=== PATIENT | female | born 1940 | race Caucasian/White ===

== ENCOUNTER 2020-04-12 17:41 | Inpatient (IN) | payer MEDICARE ==
[~2020-04-12] VITALS: Ht 157.5 cm; Wt 60.8 kg
--- NOTE | ~2020-04-12 | RHP ---
PATIENT: YONG WARNER MEDICAL RECORD: [id number] ACCOUNT: [id number] LOCATION:[id number] : 42 ADMISSION DATE: 04/12/20 REHABILITATION HISTORY AND PHYSICAL EXAMINATION POST ADMISSION PHYSICIAN EXAMINATION POST ADMISSION PHYSICAL EXAMINATION AND HISTORY AND PHYSICAL ADMITTING DIAGNOSIS: Cerebrovascular accident. HISTORY OF PRESENT ILLNESS: The patient is a 79-year-old female patient, who is admitted to [facility] with a stroke, with a large infarct involving the left middle cerebral artery territory. She was in the ED after a fall at home. She was 5 days postop from a valve replacement done at [facility] in [place]. The patient had Plavix postop. On exam, she was hypoxic with O2 sat of 89%. She had some dysphagia and word salad. The patient was responding to pain in all 4 extremities. She is pleasantly confused, but cooperative. CT showed what appeared to be a left brain CVA after a fall 5 days after her valve replacement. Neurology, cardiology and cardiovascular surgery were consulted. The patient had x-rays of her hip, which showed a displaced right femoral neck fracture. Ortho was consulted on 04/04/2020, she went to the OR for right hip endoprosthesis. Previously, she was living with her spouse in a 2-story house. She was independent with ADLs and mobility prior to this. Currently, she is much more alert and talking, but has cognitive deficits that she has memory processing and she requires moderate cues for completion of ADLs and mobility. She is also max assist for transfers, balance, and gait. She wants to be able to return home at her prior level of functioning. COMORBIDITIES: Include weakness, acute CVA, right femoral neck fracture. She has got speech and language deficits, aortic stenosis, status post aortic valve replacement, COPD, hyperkalemia and hypertension. PAST MEDICAL HISTORY: Significant for hypertension, aortic stenosis, COPD, gastroesophageal reflux disease, hyperlipidemia, osteoporosis or tobacco use. PAST SURGICAL HISTORY: Includes right knee arthroplasty. She has had a rotator cuff repair. She has had spinal surgery and cataract surgery. ALLERGIES: CODEINE, HYDROCODONE, YELLOW DYE AND CELEBREX. CURRENT MEDICATIONS: Include Atrovent updrafts q.i.d. p.r.n. She is on Zoloft 100 mg daily, enoxaparin 40 mg daily, clopidogrel 75 mg daily, atorvastatin 40 mg daily, Synthroid 50 mcg daily, Singulair 10 mg at bedtime, Neurontin 600 mg b.i.d., Ventolin updrafts as needed and tramadol 100 mg q.6 hours p.r.n. HABITS: No alcohol or tobacco use. FAMILY HISTORY: Noncontributory. SOCIAL HISTORY: The patient hopes to return back home and get back to her prior level of functioning. REVIEW OF SYSTEMS: GENERAL: Does complain of weakness and fatigue. HEENT: Denies cold, cough, or congestion. HISTORY AND PHYSICAL [id number] YONG WARNER CARDIOVASCULAR: Denies any chest pain. PHYSICAL EXAMINATION: VITAL SIGNS: Stable, afebrile. GENERAL: Elderly female, in no acute distress upon exam. HEENT: Normocephalic and atraumatic. Mucosa moist. NECK: Supple. No lymphadenopathy. LUNGS: Clear in upper [place]. No wheezing, rhonchi or rales. HEART: Regular rate and rhythm. No murmurs, rubs, or gallops. ABDOMEN: Soft, benign, and nondistended. EXTREMITIES: Consistent with hip replacement. Postop swelling appears normal. NEUROLOGIC: She is mildly confused, but she is able to answer most questions. She does have proximal muscle strength and weakness, especially on her side that she had her hip done. LABORATORY DATA: White count 6.2, H&H 10.6 and 34.0 and platelet count is 246. Sodium 141, potassium 3.7, BUN and creatinine of 16 and 0.6 and blood sugar is noted to be 75. ASSESSMENT: This is a 79-year-old female patient admitted to rehab with a working diagnosis of status post cerebrovascular accident and also status post hip replacement. The patient has potential to make improvement. We instituted the following multidisciplinary therapies including, but not limited to physical, occupational, respiratory, speech, nutritional services, prosthetics and orthotics. Given her complex medical condition and risk of further medical complications, rehabilitation services cannot be provided at a low level of care such as skilled nurse facility. PLAN: 1. Admit to [facility] for intensive inpatient therapy to include the following disciplines; A. Physical therapy to improve gait, all transfer skills and bed mobility to a modified independent level. B. Occupational therapy to improve activities of daily living. C. Case management to help with discharge planning and placement options. D. Nutrition to assist with nutritional needs. E. Rehabilitation nursing to assist in monitoring the patient's underlying medical and to assist with any type of bowel or bladder management. 2. The patient's current medication and medical care will be continued. 3. The patient will be placed on standard fall precautions. 4. The patient's estimated length of stay is approximately 7-10 days. 5. We will discuss the patient during care team staff meeting this week. We will watch for any further signs of CVA. We will work on getting her back up on her hip again and will follow up as needed. TRANSINT:[id number] Voice Confirmation ID: [id number] DOCUMENT ID: [id number] JON notes whether there has been none or any medical/functional change since admission: - No change since preadmission screen. JON attests patient continues to be appropriate for IRF: - Continues to be appropriate. HISTORY AND PHYSICAL [id number] YONG WARNER,KALLI VILLALPANDO MD CC: [id number] DICTATION DATE: 04/13/20 1326 MACHINE SILK SCREEN PRINTER: 04/13/20 193 ADM IN [facility] [address] [place] [address]
[2020-04-12 19:38] VITALS: BP 120/53
--- NOTE | 2020-04-12 20:00 | NUR ---
PATIENT RECEIVED SITTING UP IN BED. ASSESSMENT BY CARCASS SPLITTER NURSE. VITAL SIGNS DONE. BED LOW. ALARM ON. CALL LIGHT WITHIN REACH. WILL CONTINUE TO MONITOR.
[2020-04-12 22:26] VITALS: BP 120/53; BMI 24.5
--- NOTE | 2020-04-13 05:00 | NUR ---
PATIENT TOILETED. VOID ONLY. PATIENT MINIMAL ASSIST INTO & OUT OF BED. B3D LOW. CALL LIGHT WITHIN REACH. WILL CONTINUE TO MONITOR.
[2020-04-13 07:05] LABS: BASOPHILS 0.3 % (0-2); EOSINOPHILS 1.5 % (0-7); HEMOGLOBIN 10.6 g/dL (12-16); IMMATURE GRANULOCYTES 0.3 % (0-5); LYMPHOCYTES 9.4 % (15-50); MCH 28.6 pg (26.0-34.0); MCHC 31.2 g/dL (31.0-37.0); MCV 91.6 fL (80.0-100.0); MEAN PLATELET VOLUME 8.9 fL (7.4-10.4); MONOCYTES 7.3 % (2-11); NEUTROPHILS 81.2 % (40-80); PLATELET COUNT 246 10x3/uL (130-400); RBC 3.71 10x6/uL (4.00-5.40); RDW 13.8 % (11.5-14.5); WBC 6.2 10x3/uL (4.8-10.8)
[2020-04-13 07:31] LABS: CALC OSMOLALITY 280 mosm/kg (275-300); CALCIUM 8.1 mg/dL (8.5-10.1); CARBON DIOXIDE 31.7 mmol/L (21.0-32.0); CHLORIDE - SERUM 104 mmol/L (98-107); CREATININE - SERUM 0.6 mg/dL (0.6-1.3); GLUCOSE 75 mg/dL (74-106); POTASSIUM - SERUM 3.7 mmol/L (3.5-5.1); SODIUM 141 mmol/L (136-145); UREA NITROGEN 16 mg/dL (7-18); eGFR NON AFRICAN AMERICAN > 90 mL/min (90-120)
[2020-04-13 08:00] VITALS: BP 149/74
--- NOTE | 2020-04-13 08:00 | NUR ---
SHIFT ASSMT COMPLETED.CL IN REACH.
[2020-04-13 10:46] VITALS: Ht 157.5 cm; Wt 60.8 kg
--- NOTE | 2020-04-13 19:30 | NUR ---
PATIENT RECEIVED SITTING UP IN WHEELCHAIR. ASSESSMENT & VITAL SIGNS DONE. CALL LIGHT WITHIN REACH. WILL CONTINUE TO MONITOR.
[2020-04-13 21:12] VITALS: BP 131/68
--- NOTE | 2020-04-13 23:00 | NUR ---
PATIENT DRESSING REMOVED TO RIGHT HIP. NO REDNESS, STERI STRIPS IN PLACE. NEW DRESSING APPLIED. PATIENT TOLERATED IT WELL. BED LOW. ALALRM ON. CALL LIGHT WITHIN REACH. WILL CONTINUE TO MONITOR.
[2020-04-14] MEDS ORDERED: SINGULAIR10 MG PO (00:13)
[2020-04-14] MEDS ORDERED: ZOLOFT100 MG PO (00:14)
[2020-04-14] MEDS ORDERED: ULTRAM50 MG PO (00:15)
[2020-04-14] MEDS ORDERED: LIPITOR40 MG PO (00:17)
[2020-04-14] MEDS ORDERED: VENTOLIN HFA [SP8 GM INH (00:17)
[2020-04-14] MEDS ORDERED: PLAVIX75 MG PO (00:18)
[2020-04-14] MEDS ORDERED: LOVENOX40 MG/0.4 (00:19)
[2020-04-14] MEDS ORDERED: NEURONTIN 300300 MG PO (00:21)
[2020-04-14] MEDS ORDERED: SYNTHROID50 MCG PO (00:21)
[2020-04-14] MEDS ORDERED: INCRUSE ELLI62.5 MCG INH (00:21)
--- NOTE | 2020-04-14 01:26 | NUR ---
I have reviewed this patient and I concur with the Shift Assessment completed by the Licensed Practical Nurse today this shift.
--- NOTE | 2020-04-14 08:00 | NUR ---
SHIFT ASST COMPLETED.
[2020-04-14 08:26] VITALS: BP 124/64
--- NOTE | 2020-04-14 12:00 | NUR ---
VISITING.SITTING UP EATING LUNCH.
[2020-04-14 20:00] VITALS: BP 134/64
--- NOTE | 2020-04-14 20:00 | NUR ---
PATIENT RECEIVED SITTING UP IN WHEELCHAIR. ASSESSMENT & VITAL SIGNS DONE. PATIENT TOILETED. VOID ONLY. DRESSING TO LEFT HIP C/D/I. PATIENT RETURNED TO BED. CLOTHING TAKEN OFF. GOWN ON. BED LOW. CALL LIGHT WITHIN REACH. ALARM ON. WILL CONTINUE TO MONITOR.
--- NOTE | 2020-04-15 01:54 | NUR ---
PATIENT EYES CLOSED. RESPIRATIONS 18 & EVEN. BED LOW. ALARM ON. CALL LIGHT WITHIN REACH. WILL CONTINUE TO MONITOR.
--- NOTE | 2020-04-15 04:32 | NUR ---
I have reviewed this patient and I concur with the Shift Assessment completed by the Licensed Practical Nurse today this shift.
[2020-04-15 07:08] LABS: BASOPHILS 0.7 % (0-2); EOSINOPHILS 1.3 % (0-7); HEMATOCRIT 30.9 % (36.0-48.0); HEMOGLOBIN 9.7 g/dL (12-16); IMMATURE GRANULOCYTES 0.2 % (0-5); MCH 28.3 pg (26.0-34.0); MCHC 31.4 g/dL (31.0-37.0); MCV 90.1 fL (80.0-100.0); MEAN PLATELET VOLUME 9.1 fL (7.4-10.4); MONOCYTES 8.5 % (2-11); NEUTROPHILS 74.3 % (40-80); PLATELET COUNT 256 10x3/uL (130-400); RBC 3.43 10x6/uL (4.00-5.40); RDW 13.6 % (11.5-14.5)
[2020-04-15 07:13] LABS: WBC 4.6 10x3/uL (4.8-10.8)
[2020-04-15 07:22] LABS: CALC OSMOLALITY 283 mosm/kg (275-300); CALCIUM 8.5 mg/dL (8.5-10.1); CARBON DIOXIDE 32.1 mmol/L (21.0-32.0); CHLORIDE - SERUM 106 mmol/L (98-107); CREATININE - SERUM 0.6 mg/dL (0.6-1.3); GLUCOSE 86 mg/dL (74-106); POTASSIUM - SERUM 3.4 mmol/L (3.5-5.1); SODIUM 143 mmol/L (136-145); UREA NITROGEN 13 mg/dL (7-18); eGFR NON AFRICAN AMERICAN > 90 mL/min (90-120)
[2020-04-15 08:00] VITALS: BP 129/64
--- NOTE | 2020-04-15 20:07 | NUR ---
PT IN BED ASLEEP, AROUSES EASILY TO VOICE, NO NEEDS NOTED, RESPIRATIONS EVEN AND UNLABORED, FALL PRECAUTIONS IN PLACE, FLUIDS/CALL LIGHT WITHIN REACH
[2020-04-15 20:11] VITALS: BP 123/58
--- NOTE | 2020-04-16 00:44 | NUR ---
PT IN BED ASLEEP, AROUSES EASILY TO VOICE, NO NEEDS NOTED, RESPIRATIONS EVEN AND UNLABORED, FALL PRECAUTIONS IN PLACE, FLUIDS/CALL LIGHT WITHIN REACH
[2020-04-16 07:30] VITALS: BP 128/63
--- NOTE | 2020-04-16 07:30 | NUR ---
RECEIVED RESTING QUIETLY IN BED.DENIES PAIN AND NEEDS.DRESSING INTACT TO RIGHT HIP.WILL CONTINUE WITH CURRENT PLAN OF CARE.CL IN EASY REACH,BED IN LOW POSITION.
--- NOTE | 2020-04-16 14:22 | NUR ---
Nutrition Follow-up: Diet: Regular PO intake: ~63% average x last 6 meals. States that her appetite has been "not much." She is interested in getting Boost on meal trays. Last BM: 04/14/20. Wt: 134# (04/13/20) Meds reviewed. Labs noted: K 3.4(L) Encouraged patient to write in special meal request on menu. Will add Boost BID. Recommend continnue current diet. RD following.
--- NOTE | 2020-04-16 19:24 | NUR ---
PT ASLEEP, AROUSES EASILY TO VOICE, NO IMMEDIATE NEEDS NOTED, FALL PRECAUTIONS IN PLACE, RESPIRATIONS EVEN AND UNLABORED, FLUIDS/CALL LIGHT WITHIN REACH
[2020-04-16 22:09] VITALS: BP 153/75
--- NOTE | 2020-04-17 00:01 | NUR ---
PT ASLEEP, AROUSES EASILY TO VOICE, NO IMMEDIATE NEEDS NOTED, FALL PRECAUTIONS IN PLACE, RESPIRATIONS EVEN AND UNLABORED, FLUIDS/CALL LIGHT WITHIN REACH
[2020-04-17 07:52] LABS: CALC OSMOLALITY 276 mosm/kg (275-300); CALCIUM 8.4 mg/dL (8.5-10.1); CARBON DIOXIDE 29.5 mmol/L (21.0-32.0); CHLORIDE - SERUM 102 mmol/L (98-107); CREATININE - SERUM 0.6 mg/dL (0.6-1.3); GLUCOSE 77 mg/dL (74-106); POTASSIUM - SERUM 3.6 mmol/L (3.5-5.1); SODIUM 139 mmol/L (136-145); UREA NITROGEN 13 mg/dL (7-18); eGFR NON AFRICAN AMERICAN > 90 mL/min (90-120)
[2020-04-17 07:57] LABS: EOSINOPHILS 1.9 % (0-7); HEMATOCRIT 33.7 % (36.0-48.0); HEMOGLOBIN 10.6 g/dL (12-16); IMMATURE GRANULOCYTES 0.2 % (0-5); LYMPHOCYTES 15.2 % (15-50); MCH 28.7 pg (26.0-34.0); MCHC 31.5 g/dL (31.0-37.0); MCV 91.3 fL (80.0-100.0); MEAN PLATELET VOLUME 9.1 fL (7.4-10.4); MONOCYTES 8.8 % (2-11); NEUTROPHILS 72.9 % (40-80); PLATELET COUNT 291 10x3/uL (130-400); RBC 3.69 10x6/uL (4.00-5.40); RDW 13.7 % (11.5-14.5); WBC 4.2 10x3/uL (4.8-10.8)
[2020-04-17 08:15] VITALS: BP 133/66
--- NOTE | 2020-04-17 09:44 | NUR ---
PARTICIPATING IN THERAPY. NO C/O PAIN.
--- NOTE | 2020-04-17 13:42 | NUR ---
NO CHANGE IN ASSESSMENT. FAMILY HERE TODAY.
--- NOTE | 2020-04-17 20:49 | NUR ---
PT IN BED NO IMMEDIATE NEEDS NOTED, FALL PRECAUTIONS IN PLACE, RESPIRATIONS EASY AND EVEN, BED IN LOWEST POSITION, FLUIDS/CALL LIGHT WITHIN REACH
[2020-04-17 20:53] VITALS: BP 140/63
[2020-04-18 08:00] VITALS: BP 109/55
--- NOTE | 2020-04-18 16:14 | NUR ---
HAS BEEN UP IN WC MOST OF DAY. RT HIP STILL SWOLLEN IS RLE. IS HAVING LESS WORD SALAD IN HER SPEECH. FOLLOWS COMMANDS BETTER BUT NEEDS ENCOURAGEMENT TO STAY UP IN WC FOR A WHILE. SHE WANTS TO LAY BACK DOWN.
[2020-04-18 16:34] VITALS: BP 109/55
--- NOTE | 2020-04-18 16:35 | NUR ---
CLINICAL UPDATES FAXED TO [facility]ARPE. # [phone], FAX # , WITH CONFORMATION OF FAX RECIEVED
[2020-04-18 19:32] VITALS: BP 131/47
[2020-04-19 07:41] LABS: BASOPHILS 0.3 % (0-2); EOSINOPHILS 2.1 % (0-7); HEMATOCRIT 31.5 % (36.0-48.0); HEMOGLOBIN 9.8 g/dL (12-16); IMMATURE GRANULOCYTES 0.3 % (0-5); LYMPHOCYTES 14.3 % (15-50); MCH 28.4 pg (26.0-34.0); MCHC 31.1 g/dL (31.0-37.0); MCV 91.3 fL (80.0-100.0); MEAN PLATELET VOLUME 9.1 fL (7.4-10.4); MONOCYTES 8.5 % (2-11); NEUTROPHILS 74.5 % (40-80); PLATELET COUNT 257 10x3/uL (130-400); RBC 3.45 10x6/uL (4.00-5.40); RDW 13.9 % (11.5-14.5); WBC 3.8 10x3/uL (4.8-10.8)
[2020-04-19 07:53] LABS: CALC OSMOLALITY 284 mosm/kg (275-300); CALCIUM 8.6 mg/dL (8.5-10.1); CARBON DIOXIDE 33.2 mmol/L (21.0-32.0); CHLORIDE - SERUM 108 mmol/L (98-107); CREATININE - SERUM 0.5 mg/dL (0.6-1.3); GLUCOSE 86 mg/dL (74-106); POTASSIUM - SERUM 3.8 mmol/L (3.5-5.1); SODIUM 144 mmol/L (136-145); UREA NITROGEN 10 mg/dL (7-18); eGFR NON AFRICAN AMERICAN > 90 mL/min (90-120)
[2020-04-19 07:54] VITALS: BP 132/72
--- NOTE | 2020-04-19 14:05 | NUR ---
SITTING UP IN WC IN ROOM. NO LONGER HAS WORD SALAD BUT STILL HAS TROUBLE WITH MAKING COMPLETE SENTENCES. GENERALIZED WEAKNESS NOTED. USES WC FOR MOTION ASST. DENIES PAIN. DOES MOST ADL'S FOR SELF. TRIED PUTTING ON TWO PAIR OF PAINTIES TODAY AND COULD NOT FIGURE OUT WHY SHE "NEEDED TWO PAIR". SHE ALSO PUT HER DIRTY CLOTHES WITH HER CLEAN CLOTHES TO WEAR AGAIN. IS EASY TO REDIRECT BY STAFF. INCISION TO RT HIP HAS NO S/S INFECTION. EDEMA NOTED TO RLE.
[2020-04-19 20:00] VITALS: BP 130/77
--- NOTE | 2020-04-19 20:00 | NUR ---
PATIENT RECEIVED SITTING UP IN BED. ASSESSMENT & VITAL SIGNS DONE. RIGHT HIP INCISION STERI STRIPS DRY & INTACT. NO C/O PAIN OR DISTRESS. BED LOW. ALARM ON. CALL LIGHT WITHIN REACH. WILL CONTINUE TO MONITOR.
--- NOTE | 2020-04-19 21:10 | NUR ---
PATIENT USED CALL LIGHT FOR ASSIST. PATIENT MINIMAL ASSIST INTO & OUT OF BED & WHEELCHAIR. VOID ONLY. RETURNED TO LOW BED. ALARM ON. CALLIGHT WITHIN REACH. WILL CONTINUE TO MONITOR.
--- NOTE | 2020-04-20 01:33 | NUR ---
PATIENT EYES CLOSED. RESPIRATIONS 18 & EVEN. BED LOW. CALL LIGHT WITHIN REACH. ALARM ON. WILL CONTINUE TO MONITOR.
--- NOTE | 2020-04-20 02:04 | NUR ---
I have reviewed this patient and I concur with the Shift Assessment completed by the Licensed Practical Nurse today this shift.
[2020-04-20 08:00] VITALS: BP 117/68
--- NOTE | 2020-04-20 11:50 | NUR ---
SITTING UP IN WC IN ROOM. VISITING. CALL LIGHT IN REACH
--- NOTE | 2020-04-20 17:46 | NUR ---
SITTING UP IN WC IN ROOM EATING SUPPER. DENIES NEEDS. CALL LIGHT IN REACH
--- NOTE | 2020-04-20 17:57 | NUR ---
SITTING UP IN WC IN ROOM TALKING ON PHONE. CALL LIGHT IN REACH
--- NOTE | 2020-04-20 19:40 | NUR ---
PATIENT RECEIVED SITTING UP IN WHEELCHAIR AT BESIDE. ALARM ON. ASSESSMENT & VITAL SIGNS DONE. PATIENT TOILETED, MINIMAL ASSIST. VOID ONLY. CALL LIGHT WITHIN REACH. WILL CONTINUE TO MONITOR.
[2020-04-20 20:15] VITALS: BP 127/64
--- NOTE | 2020-04-21 02:08 | NUR ---
I have reviewed this patient and I concur with the Shift Assessment completed by the Licensed Practical Nurse today this shift.
--- NOTE | 2020-04-21 02:19 | NUR ---
PATIENT EYES CLOSED. RESPIRATIONS 18 & EVEN. ALARM ON. BED LOW. CALL LIGHT WITHIN REACH. WILL CONTINUE TO MONITOR.
[2020-04-21 08:00] VITALS: BP 128/64
--- NOTE | 2020-04-21 17:04 | NUR ---
RESTING QUIETLY IN BED. VISITED TODAY. STILL STATES HER RLE IS STIFF. CALL ARLET REACH
[2020-04-21 19:46] VITALS: BP 107/61
--- NOTE | 2020-04-21 20:00 | NUR ---
PATIENT RECEIVED SITTING UP IN BED WATCHING TV. ASSESSMENT & VITAL SIGNS DONE. PATIENT TOILETED. VOID ONLY. RIGHT LEG PLUS 4 EDEMA. RIGHT HIP STERI STRIPS IN PLACE. PATIENT RETURNED TO LOW BED. ASSIST WITH LEGS INTO BED. ALARM ON. PHONE & CALL LIGHT WITHIN REACH. WILL CONTINUE TO MONITOR.
--- NOTE | 2020-04-22 03:25 | NUR ---
I have reviewed this patient and I concur with the Shift Assessment completed by the Licensed Practical Nurse today this shift.
[2020-04-22 07:05] LABS: BASOPHILS 0.3 % (0-2); EOSINOPHILS 3.4 % (0-7); HEMATOCRIT 29.7 % (36.0-48.0); HEMOGLOBIN 9.1 g/dL (12-16); IMMATURE GRANULOCYTES 0.3 % (0-5); LYMPHOCYTES 22.8 % (15-50); MCH 28.3 pg (26.0-34.0); MCHC 30.6 g/dL (31.0-37.0); MCV 92.5 fL (80.0-100.0); MEAN PLATELET VOLUME 8.6 fL (7.4-10.4); MONOCYTES 12.2 % (2-11); PLATELET COUNT 213 10x3/uL (130-400); RBC 3.21 10x6/uL (4.00-5.40); RDW 13.8 % (11.5-14.5); WBC 3.2 10x3/uL (4.8-10.8)
[2020-04-22 07:21] LABS: CALC OSMOLALITY 276 mosm/kg (275-300); CALCIUM 8.7 mg/dL (8.5-10.1); CARBON DIOXIDE 33.9 mmol/L (21.0-32.0); CHLORIDE - SERUM 107 mmol/L (98-107); CREATININE - SERUM 0.7 mg/dL (0.6-1.3); GLUCOSE 86 mg/dL (74-106); POTASSIUM - SERUM 3.9 mmol/L (3.5-5.1); SODIUM 140 mmol/L (136-145); UREA NITROGEN 10 mg/dL (7-18); eGFR NON AFRICAN AMERICAN 86 mL/min (90-120)
[2020-04-22 08:06] VITALS: BP 106/59
--- NOTE | 2020-04-22 08:19 | NUR ---
ALERT. SITTING IN WC. NO DISTRESS NOTED. CL IN REACH.
--- NOTE | 2020-04-22 12:34 | NUR ---
EATING LUNCH. NO C/O PAIN. CL IN REACH. REPOSITIONED UP IN BED.
--- NOTE | 2020-04-22 17:38 | NUR ---
NO CHANGE IN ASSESSMENT. SITTING IN WC EATING DINNER. NO DISTRESS NOTED. CL IN REACH.
[2020-04-22 19:40] VITALS: BP 126/62
--- NOTE | 2020-04-22 19:40 | NUR ---
ASSESSMENT PER FLOW SHEET, VS OBTAINED, PT REPORTS FLATUS, BM TODAY, AND VOIDING WITH NO DIFFICULTY, PT C/O RIGHT LEG PAIN, REQUESTS PAIN MED WHEN DUE, INFORMED PT PAIN MED WAS DUE AT 2100, PT DENIES FURTHER NEEDS AT THIS TIME, FALL PRECAUTIONS IN PLACE
--- NOTE | 2020-04-22 21:23 | NUR ---
PT RESTING WITH EYES CLOSED, AROUSES TO SOFT VERBAL STIMULATION, ADM 2100 MEDS, INFORMED PT THAT I HAVE TO CALL THE DOCTOR TO GET HER PAIN MED RENEWED, PT VERBALIZES UNDERSTANDING, FRESH H20 SERVED, PT DENIES FURTHER NEEDS AT THIS TIME
--- NOTE | 2020-04-22 22:08 | NUR ---
PT RESTING WITH EYES CLOSED, AROUSES TO SOFT VERBAL STIMULATION, ADM TRAMADOL PER MD ORDERS, SEE EMAR, FALL PRECAUTIONS IN PLACE
--- NOTE | 2020-04-23 | NUR ---
PT RESTING WITH EYES CLOSED, RESP QUIET, NO DISTRESS NOTED, LEFT UNDISTURBED AT THIS TIME, FALL PRECAUTIONS IN PLACE
--- NOTE | 2020-04-23 02:40 | NUR ---
PT RESTING WITH EYES CLOSED, RESP QUIET, NO DISTRESS NOTED, LEFT UNDISTURBED AT THIS TIME, FALL PRECAUTIONS IN PLACE
--- NOTE | 2020-04-23 04:30 | NUR ---
PT RESTING WITH EYES CLOSED, RESP QUIET, NO DISTRESS NOTED, LEFT UNDISTURBED AT THIS TIME, FALL PRECAUTIONS IN PLACE
--- NOTE | 2020-04-23 05:54 | NUR ---
PT RESTING WITH EYES CLOSED, AROUSES TO SOFT VERBAL STIMULATION, ADM 0600 MEDS PER MD ORDERS, SEE EMAR, WITH FRESH H20, PT UP TO BR WITH ASSISTANCE VIA WC, PT INCONT, PT HAD SMALL BM AND VOIDED WITH NO DIFFICULTY, PT CLEANED UP WITH WET WIPES, COTHES CHANGED, PT BACK TO BED, DENIES FURTHER NEEDS OR PAIN, FALL PRECAUTIONS IN PLACE
--- NOTE | 2020-04-23 07:30 | NUR ---
RECEIVED RESTING QUIETLY IN BED.AROUSES EASILY.ORIENTED TO SELF AND HOSPITAL.DENIES NEEDS AT PRESENT TIME.WILL CONTINUE WITH CURRENT PLAN OF CARE.CL IN EASY REACH,BED IN LOW POSITION.BED ALARM ON AND WORKING.
[2020-04-23 08:00] VITALS: BP 119/63
--- NOTE | 2020-04-23 13:22 | NUR ---
NUTRITION FOLLOW UP: COMMENT: Patient with PT during visit this am. Patient has been experiencing an okay PO intake. Patient continue to receive Boost with lunch and dinner. Patients last BM was 04/22 DIET: Regular Diet SUPPLEMENT: Boost with lunch and Dinner PO INTAKE: 58% avg for last 8 meals WEIGHT: 134 lbs on 04/13 BM: x 1 on 04/22 SIG MEDS: Miralax, Lovenox, Lipitor, Synthroid SIG LABS: GFR-86(L), CO2-33.9(H) RD to continue to monitor and follow patient DHS
[2020-04-23 19:26] VITALS: BP 115/47
--- NOTE | 2020-04-23 19:39 | NUR ---
RECIEVED BEDSIDE SHIFT REPORT. ALERT AND ORIENTED TO PERSON AND PLACE ONLY. THINKS IT 1950. ASSISTED TO TOILET IN W/C. REQUIRES MIN ASSIST. STERI STRIPS TO RT HIP. CDI. BED ALARM ON. DENIES ANY OTHER NEEDS.
--- NOTE | 2020-04-24 04:32 | NUR ---
RESTING IN BED WITH EYES CLOSED. CALL LIGHT AND PERSONAL EFFECTS IN REACH. NO OBVIOUS S/S OF DISTRESS OBSERVED.
[2020-04-24 08:27] VITALS: BP 131/75
[2020-04-24 09:13] LABS: CALC OSMOLALITY 277 mosm/kg (275-300); CARBON DIOXIDE 33.1 mmol/L (21.0-32.0); CHLORIDE - SERUM 104 mmol/L (98-107); CREATININE - SERUM 0.7 mg/dL (0.6-1.3); GLUCOSE 103 mg/dL (74-106); POTASSIUM - SERUM 3.7 mmol/L (3.5-5.1); SODIUM 140 mmol/L (136-145); UREA NITROGEN 10 mg/dL (7-18); eGFR NON AFRICAN AMERICAN 86 mL/min (90-120)
[2020-04-24 09:28] LABS: BASOPHILS 0.3 % (0-2); EOSINOPHILS 2.9 % (0-7); HEMATOCRIT 35.6 % (36.0-48.0); LYMPHOCYTES 19.1 % (15-50); MCH 28.6 pg (26.0-34.0); MCHC 30.9 g/dL (31.0-37.0); MCV 92.5 fL (80.0-100.0); MEAN PLATELET VOLUME 9.4 fL (7.4-10.4); MONOCYTES 5.8 % (2-11); NEUTROPHILS 71.9 % (40-80); PLATELET COUNT 247 10x3/uL (130-400); RBC 3.85 10x6/uL (4.00-5.40); RDW 13.9 % (11.5-14.5); WBC 3.8 10x3/uL (4.8-10.8)
--- NOTE | 2020-04-24 10:49 | NUR ---
SITTING UP IN WC IN ROOM. RLE 4+ EDEMA NOTED. MIN TO SBA TO TRANSFER. STILL HAS TROUBLE FIGURING OUT SIMPLE PROBLEMS BUT NO WORD SALAD NOTED. CALL LIGHT IN REACH
[2020-04-24 19:06] VITALS: BP 155/52
--- NOTE | 2020-04-24 19:35 | NUR ---
UP IN CHAIR SITTING QUIETLY, NO NEEDS NOTED, RESPIRATIONS EVEN/UNLABORED, FALL PRECAUTIONS IN PLACE, FLUIDS/CALL LIGHT WITHIN REACH
--- NOTE | 2020-04-25 00:19 | NUR ---
PT ASLEEP,AROUSES EASILY TO VOICE, RESPIRATIONS SLOW AND EASY, NO IMMEDIATE NEEDS NOTED, FALL PRECAUTIONS IN PLACE, FLUIDS/CALL LIGHT WITHIN REACH
--- NOTE | 2020-04-25 08:00 | NUR ---
PT RESTING IN BED WITH EYES OPEN CALL LIGHT IN REACH WILL MONITER
--- NOTE | 2020-04-25 09:59 | NUR ---
PATIENT PCP IS DR. RAFAEL LEE. SHE HAS A WALKER AND WHEELCHAIR AT HOME. WILL CONTINUE TO FOLLOW WITH PATIENT.
[2020-04-25 10:01] VITALS: BP 148/80
--- NOTE | 2020-04-25 10:42 | NUR ---
SITTING UP IN WC IN ROOM. DENIES INCREASED PAIN. RLE STILL SWOLLEN
--- NOTE | 2020-04-25 13:00 | NUR ---
PT DISCHARGED TO HOME VIA WHEELCHAIR WITH DISCHARGE SUMMARY AND MEDS REVIEWED NO PROBLEMS WILL MONITER
[2020-04-25] MEDS ORDERED: K-DUR20 MEQ PO (13:26)
--- NOTE | 2020-04-25 14:21 | NUR ---
PATIENT DISCHARGED HOME WITH FAMILY TODAY. [facility] WILL PROVIDE THERAPY AT HOME.NO NEW DME NEEDED AT THIS TIME. DR. RAFAEL LEE 05/03/20 @ 9:00, DR. DE JESUS 04/29/20 @ 2:10, DR. CHITRA ALONZO 05/16/20 @ 11:00. NI SIGNED, IMM SERVED AND EXPLAINED. ONE GIVEN TO PATIENT AND ONE FILED IN CHART. DC INSTRUCTIONS HAS BEEN FAXED TO PCP, [facility] AND TO ANNEMARIE , AUTH. #[id number], AND REVIEWED WITH PATIENT PER PRIMARY NURSE.
== END 2020-04-25 13:45 | disposition home health service (06) | DRG 56 ==
LOC: D.REHAB 17:41
PROVIDERS: ADMIT Emergency Medicine; ATTEND Emergency Medicine
DX: I69.30 Unspecified sequelae of cerebral infarction (principal); I63.9 Cerebral infarction, unspecified; R53.1 Weakness; J44.9 Chronic obstructive pulmonary disease, unspecified; E87.5 Hyperkalemia; I10 Essential (primary) hypertension; I35.0 Nonrheumatic aortic (valve) stenosis; S72.001D Fracture of unspecified part of neck of right femur, subsequent encounter for closed fracture with routine healing; W19.XXXD Unspecified fall, subsequent encounter; K21.9 Gastro-esophageal reflux disease without esophagitis; M81.0 Age-related osteoporosis without current pathological fracture; R47.9 Unspecified speech disturbances; E87.6 Hypokalemia; Z91.81 History of falling